=== PATIENT | female | born 1970 | race Caucasian/White ===

== ENCOUNTER → 2018-06-06 | Outpatient (CLI) | payer BC | END | disposition home or self-care (01) | LOC: CFH 15:18 | PROVIDERS: ATTEND Obstetrics & Gynecology | DX: N83.202 Unspecified ovarian cyst, left side (principal); N85.00 Endometrial hyperplasia, unspecified; R93.89 Abnormal findings on diagnostic imaging of other specified body structures | CPT/HCPCS: 76830 ==

== ENCOUNTER → 2020-12-09 | Outpatient (CLI) | payer BC | END | disposition home or self-care (01) | LOC: CFH 07:27 | PROVIDERS: ATTEND Obstetrics & Gynecology | DX: Z12.31 Encounter for screening mammogram for malignant neoplasm of breast (principal) | CPT/HCPCS: 77063; 77067 ==